=== PATIENT | male | born 1995 | race Caucasian/White ===

== ENCOUNTER 2019-03-04 20:41 | Emergency (ER) | payer SELFPAY ==
[~2019-03-04] VITALS: Ht 188 cm; Wt 119.0 kg
[2019-03-04] MEDS ORDERED: EPINEPHrine 1:10,000 [1 MG/10 ML] SYRINGE IVP ONE (20:43)
[2019-03-04] MEDS ORDERED: NALOXONE HCL 1 MG/ML 2 ML SYG IM ONE (20:43)
[2019-03-04] MEDS ORDERED: AMIODARONE HCL 200 MG TABLET PO ONE (20:43)
[2019-03-04] MEDS ORDERED: SODIUM BICARBONATE [ADULT] 8.4% 50 MEQ/50 ML SYRINGE IVP ONE (20:43)
[2019-03-04 21:29] VITALS: BP 123/56
== END 2019-03-04 23:38 | disposition expired ==
LOC: EDBD 20:42 → EMS 20:42
DX: I46.9 Cardiac arrest, cause unspecified (principal); J96.90 Respiratory failure, unspecified, unspecified whether with hypoxia or hypercapnia
CPT/HCPCS: 31500; 82962; 92950; 99285; J0171; J2310; J3490